=== PATIENT | male | born 1980 | race Caucasian/White ===

== ENCOUNTER 2021-10-19 10:33 | Outpatient (CLI) | payer BC | END 2021-10-19 10:34 | disposition home or self-care (01) | LOC: CSHMRI 10:33 | PROVIDERS: ATTEND Neurological Surgery | DX: M54.50 Low back pain, unspecified (principal); M47.816 Spondylosis without myelopathy or radiculopathy, lumbar region | CPT/HCPCS: 72148 ==

== ENCOUNTER 2022-08-22 15:07 | Outpatient (CLI) | payer BC | END 2022-08-22 15:08 | disposition home or self-care (01) | LOC: CSHMRI 15:07 | PROVIDERS: ATTEND Neurological Surgery | DX: M54.14 Radiculopathy, thoracic region (principal); M47.814 Spondylosis without myelopathy or radiculopathy, thoracic region | CPT/HCPCS: 72070; 72146 ==